=== PATIENT | female | born 1990 | race Caucasian/White ===

== ENCOUNTER 2016-12-05 15:59 | Emergency (ER) ==
[2016-12-05 16:08] VITALS: BP 130/90; TEMP 98.8; BMI 34.7
--- NOTE | 2016-12-05 16:31 | DI ---
Exam: Two x-rays of the right tibia-fibula. Comparison: None available. Reason for exam: Trauma with contusion. FINDINGS: No acute fracture or malalignment. The cortex is intact. No unexplained calcific soft t issue densities or radiopaque retained foreign bodies. Impression: No acute fracture or malalignment in the right tibia or fibula.
--- NOTE | 2016-12-05 16:48 | ED.PDOC ---
General ED Provider: Dr. 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 Time Seen by Physician: 16:20 Mode of Arrival: Walk-In Information Source: Patient Nursing and Triage Documentation Reviewed and Agree: Yes Musculoskeletal Complaint Exam - Knee Pain Complaint/Exam Mechanism of Injury: Reports: Trauma Onset/Duration: 3 days Symptoms Are: Still present Onset of Pain: Reports: Immediate Initial Severity: Moderate Current Severity: Moderate Location: Reports: Diffuse Character: Reports: Aching, Throbbing Alleviating: Reports: None Aggravating: Reports: Movement, Weight bearing Associated Signs and Symptoms: Reports: Swelling (mild ). Denies: Redness, Bruising, Fever, Weakness, Numbness, Tingling Able to Bear Weight: Yes Septic Arthritis Risk Factors: Reports: None Gout Risk Factors: Reports: None Knee Findings: Present: Swelling, Tenderness, Limited range of motion Tenderness: Present: Pre-patellar, Joint Aashish Test Positive: No Matt Test Positive: No Limited Range of Motion: Present: Active Differential Diagnoses: Bursitis, Tendonitis, Abrasion, Closed Fracture Review of Systems - Review Of Systems Constitutional: Reports: No symptoms Eyes: Reports: No symptoms Ears, Nose, Mouth, Throat: Reports: No symptoms Respiratory: Reports: No symptoms Cardiac: Reports: No symptoms GI: Reports: No symptoms : Reports: No symptoms Musculoskeletal: Reports: Joint pain Skin: Reports: No symptoms Neurological: Reports: Anxiety Endocrine: Reports: No symptoms Hematologic/Lymphatic: Reports: No symptoms All Other Systems: Reviewed and Negative Past Medical History - Past Medical History Previously Healthy: Yes Endocrine: Reports: None Cardiovascular: Reports: None Respiratory: Reports: None Hematological: Reports: None Gastrointestinal: Reports: None Genitourinary: Reports: None Neuro/Psych: Reports: None Musculoskeletal: Reports: None Cancer: Reports: None Last Menstrual Period: 2 weeks ago - Surgical History General Surgical History: Reports: Unknown - Family History Family History: Reports: Unknown - Social History Smoking Status: Never smoker Hx Substance Use: No Alcohol Screening: None Physical Exam - Physical Exam Appearance: Ill-appearing Ill-appearing: Mild Pain Distress: Severe Neck: Supple Respiratory: Airway patent, Breath sounds clear, Breath sounds equal, Respirations nonlabored Cardiovascular: RRR, Pulses normal, No rub, No murmur GI/: Soft, Nontender, No masses, Bowel sounds normal, No Organomegaly Musculoskeletal: Limited ROM Skin: Warm Neurological: Sensation intact, Motor intact, Reflexes intact, Cranial nerves intact, Alert, Oriented Psychiatric: Anxious, Depressed Interpretation - Radiology Interpretation Radiology Interpretation By: Radiologist Radiology Results: Negative Exam Interpreted: Other (TIB FIB ) Critical Care Note - Critical Care Note Total Time (mins): 0 Course - Course Orders, Labs, Meds: Orders Category Date Time Status TIBIA/FIBULA, RIGHT 2 VIEW Stat RADS 12/05/16 16:13 Completed Vital Signs: Temp Pulse Resp BP Pulse Ox 12/05/16 16:00 98.8 F 106 H 16 130/90 99 Departure - Departure Time of Disposition: 16:47 Disposition: HOME SELF-CARE Discharge Problem: Contusion Qualifiers: Encounter type: initial encounter Contusion area: lower leg Laterality: right Qualifier Code: (S80.11XA) Contusion of right lower leg, initial encounter Instructions: Contusion in Adults (ED) Condition: Fair Pt referred to PMD for follow-up: Yes Additional Instructions: Rest Take medications as prescribed. Follow up with PCP in 3 days. Prescriptions: Tramadol HCl [Ultram] 50 mg PO Q6H PRN #14 tablet PRN Reason: Severe Pain Allergies/Adverse Reactions: Allergies Penicillins Adverse Reaction (Verified 12/05/16 16:04) Home Medications: Ambulatory Orders Fluoxetine HCl [Prozac] 40 mg PO DAILY 05/13/14 Tramadol HCl [Ultram] 50 mg PO Q6H PRN #14 tablet 12/05/16 Disposition Discussed With: Patient, Family
== END 2016-12-05 16:55 | disposition home or self-care (01) ==
LOC: ED 15:59
DX: S80.11XA Contusion of right lower leg, initial encounter (principal)
CPT/HCPCS: 99283

== ENCOUNTER 2018-09-26 17:30 | Emergency (ER) ==
[2018-09-26 17:36] VITALS: BP 146/94; TEMP 98.7; BMI 39.4
[2018-09-26] MEDS ORDERED: NORCO 10-325 PO STA (18:11)
--- NOTE | 2018-09-26 18:12 | ED.PDOC ---
General ED Provider: Dr. SHAILA STEELE Chief Complaint: Headache Stated Complaint: headache Time Seen by Physician: 17:40 (started 1 day ago seen with adrien at all times no motor sensory issues ) Mode of Arrival: Walk-In Information Source: Patient Exam Limitations: No limitations Primary Care Provider: IDA NDIAYE Nursing and Triage Documentation Reviewed and Agree: Yes Does patient meet sepsis criteria?: No If yes, has appropriate treatment been initiated?: No System Inflammatory Response Syndrome: Not Applicable Sepsis Protocol: For patient's 13 years and over: Temp is 96.8 and below OR 101 and greater Pulse >90 BPM Resp >20/minute Acutely Altered Mental Status Are patient's symptoms suggestive of a new infection, such as: -Pneumonia -Skin, Soft Tissue -Endocarditis -UTI -Bone, Joint Infection -Implantable Device -Acute Abdominal Infection -Wound Infection -Meningitis -Blood Stream Catheter Infection -Unknown Neurological Complaint Exam - Headache Complaint/Exam Onset: Gradual Duration: 1 day Symptoms Are: Still present Timing: Constant Episodes Lasting: Hours Worst Headache Ever: No Initial Severity: Mild Current Severity: Mild Character: Reports: Dull Aggravating: Reports: None Alleviating: Reports: None Associated Signs and Symptoms: Denies: Dizziness, Seizure, Nausea, Vomiting, Sinus pressure, Fever, Neck pain, Neck stiffness, Decreased LOC, Visual changes Related History: Reports: Similar episode Related Surgical History: Reports: None SAH Risk Factors: Reports: None Meningitis Risk Factors: Reports: None SDH Risk Factors: Reports: None Temporal Arteritis Risk Factors: Reports: None Fundoscopic Exam: Present: Normal Findings Papilledema Present: No Temporal Artery Tenderness: Present: None Sinus Tenderness: Present: None TMJ Tenderness: Present: None Glascow Coma Scale (see protocol): 15 Meningeal Signs Positive: No Pain on Passive Flexion-Positive Kernig's: No Focal Weakness: Present: None Focal Sensory Loss: Present: None Nystagmus Present: No Gag Reflex Present: Yes Babinski Sign: Negative Right, Negative Left Heel to Toe Normal: Yes Differential Diagnoses: Migraine Review of Systems - Review Of Systems Constitutional: Reports: No symptoms Eyes: Reports: No symptoms Ears, Nose, Mouth, Throat: Reports: No symptoms Respiratory: Reports: No symptoms Cardiac: Reports: No symptoms GI: Reports: No symptoms : Reports: No symptoms Musculoskeletal: Reports: No symptoms Skin: Reports: No symptoms Neurological: Reports: Headache Endocrine: Reports: No symptoms Hematologic/Lymphatic: Reports: No symptoms All Other Systems: Reviewed and Negative Past Medical History - Past Medical History Previously Healthy: Yes Endocrine: Reports: None Cardiovascular: Reports: None Respiratory: Reports: None Hematological: Reports: None Gastrointestinal: Reports: None Genitourinary: Reports: None Neuro/Psych: Reports: None Musculoskeletal: Reports: None Cancer: Reports: None Last Menstrual Period: Ended 2 days ago - Surgical History General Surgical History: Reports: Unknown - Family History Family History: Reports: Unknown - Social History Smoking Status: Never smoker Hx Substance Use: No Alcohol Screening: None - Immunizations Tetanus Shot up to Date: Yes Physical Exam - Physical Exam Appearance: Well-appearing, No pain distress, Well-nourished Eyes: BRENT, EOMI, Conjunctiva clear ENT: Ears normal, Nose normal, Oropharynx normal Respiratory: Airway patent, Breath sounds clear, Breath sounds equal, Respirations nonlabored Cardiovascular: RRR, Pulses normal, No rub, No murmur GI/: Soft, Nontender, No masses, Bowel sounds normal, No Organomegaly Musculoskeletal: Normal strength, ROM intact, No edema, No calf tenderness Skin: Warm, Dry, Normal color Neurological: Sensation intact, Motor intact, Reflexes intact, Cranial nerves intact, Alert, Oriented Psychiatric: Affect appropriate, Mood appropriate - NIH Stroke Scale 1a. Level of Consciousness: 0=Alert and keenly responsive 1b. Level of Consciousness Questions: 0=Answers correctly to two questions 1c. Level of Consciousness Commands: 0=Performs two tasks correctly 2. Best Gaze: 0=Normal 3. Visual: 0=No visual loss 4. Facial Palsy: 0=Normal 5a. Motor Left Arm: 0=No drift,arm holds 90 degrees for 10 sec., leg 30 degrees for 5 sec. 5b. Motor Right Arm: 0=No drift,arm holds 90 degrees for 10 sec., leg 30 degrees for 5 sec. 6a. Motor Left Le=No drift,arm holds 90 degrees for 10 sec., leg 30 degrees for 5 sec. 6b. Motor Right Le=No drift,arm holds 90 degrees for 10 sec., leg 30 degrees for 5 sec. 7. Limb Ataxia: 0=Absent 8. Sensory: 0=Normal 9. Best Language: 0=No aphasia 10. Dysarthria: 0=Normal 11. Extincion and Inattention: 0=Normal Stroke Scale Total: 0 Critical Care Note - Critical Care Note Total Time (mins): 0 Course - Course Orders, Labs, Meds: Orders Category Date Time Status CBC W/ AUTO DIFF Stat LAB 09/26/18 18:05 Ordered COMPREHENSIVE METABOLIC PANEL Stat LAB 09/26/18 18:05 Ordered SERUM Stat LAB 09/26/[address] HEAD W/O CONTRAST Stat RADS 09/26/18 18:06 Ordered Vital Signs: Temp Pulse Resp BP Pulse Ox 09/26/18 17:31 98.7 F 91 H 16 146/94 H 99 Departure - Departure Time of Disposition: 19:00 Disposition: HOME SELF-CARE Discharge Problem: Headache Instructions: Acute Headache (ED) Condition: Good Pt referred to PMD for follow-up: Yes IPMP verified?: No Additional Instructions: Please call your Family Physician as soon as possible to schedule a follow-up appointment. Allergies/Adverse Reactions: Allergies No Known Allergies Allergy (Unverified 09/26/18 17:43) Home Medications: Ambulatory Orders Fluoxetine HCl [Prozac] 60 mg PO DAILY 05/13/14 Esomeprazole Magnesium [Nexium] 20 mg PO BID PRN 09/26/18 Norgestimate-Ethinyl Estradiol [Estarylla 0.25-0.035 mg Tablet] 1 each PO DAILY LAB 09/26/18 Disposition Discussed With: Patient
--- NOTE | 2018-09-26 18:59 | CT ---
EXAM: CT of the head without contrast History: Headache. Comparison: Head CT 03/22/2016 Technique: Multiplanar CT images through the head were obtained without the administration of IV con trast Findings: The visualized paranasal sinuses and mastoid air cells are clear in general. No acute inge varial abnormalities. Intracranially the ventricular and cisternal spaces are normal in size, shape and configuration for a patient of this age. No dominant mass or midline shift. No hydrocephalous. No acute intracranial hemorrhage or abnormal extraaxial fluid collections. Impression: No acute intracranial process
== END 2018-09-26 19:07 | disposition home or self-care (01) ==
LOC: ED 17:30
DX: R51 Headache (principal)
CPT/HCPCS: 36415; 80053; 84703; 85025; 99283